=== PATIENT | male | born 1995 | race Two or more races ===

== ENCOUNTER 2020-09-26 19:00 | Emergency (ER) | payer OTHER ==
[~2020-09-26] VITALS: Ht 185.4 cm; Wt 90.1 kg
[2020-09-26 19:02] VITALS: BP 115/66
== END 2020-09-26 21:49 | disposition home or self-care (01) ==
LOC: M ED 19:00
DX: J06.9 Acute upper respiratory infection, unspecified (principal)
CPT/HCPCS: 87880; 99283; U0003